=== PATIENT | male | born 1995 | race Asian ===

== ENCOUNTER 2020-03-01 01:57 | Emergency (ER) | payer BC, OTHER ==
[2020-03-01 02:22] VITALS: BP 149/94; PULSE 105; TEMP 98.3; BMI 36.3
[2020-03-01] MEDS ORDERED: LIDOCAINE 5% TOPICAL PATCH TP ONE (03:00)
[2020-03-01] MEDS ORDERED: CYCLOBENZAPRINE HCL 10 MG TABLET (FP) PO ONE (03:01)
[2020-03-01] MEDS ORDERED: ACETAMINOPHEN 325 MG TABLET (FP) PO ONE (03:01)
[2020-03-01] MEDS ORDERED: ACETAMINOPHEN 325 MG TABLET (FP) ONE (03:07)
[2020-03-01] MEDS ORDERED: LIDOCAINE 5% TOPICAL PATCH ONE (03:07)
[2020-03-01] MEDS ORDERED: CYCLOBENZAPRINE HCL 10 MG TABLET (FP) ONE (03:09)
[2020-03-01] MEDS ORDERED: KETOROLAC TROMETHAMINE 30 MG/1 ML VIAL IM ONE (03:36)
[2020-03-01] MEDS ORDERED: KETOROLAC TROMETHAMINE 30 MG/1 ML VIAL ONE (03:39)
[2020-03-01] MEDS ORDERED: LIDOCAINE PATCH REMOVAL MC ONE (15:00)
== END 2020-03-01 03:47 | disposition home or self-care (01) ==
LOC: JER 01:57
PROC: 3E0233Z Introduction of Anti-inflammatory into Muscle, Percutaneous Approach (ICD-10-PCS; principal; 2020-03-01)
DX: M54.5 Low back pain (principal)
CPT/HCPCS: 99285-25